=== PATIENT | male | born 1985 | race Caucasian/White ===

== ENCOUNTER 2017-06-26 09:07 | Emergency (ER) | payer SELFPAY ==
[~2017-06-26] VITALS: Ht 193 cm; Wt 152.0 kg
[~2017-06-26 09:07] MED LIST: AMOX-362 PO; AMOX875T60 PO; AZIT1PAC21 PO; CEPH500C24 PO; CLAR-1 PO; FLUTR; HYDR-4309 PO; IPRA4AER IH; LANS30CA63 PO; MET10 PO; METH4TAB57 PO; ONDA4TAB PO; ONDA4TAB97 PO; OXYC-865 PO; PERCOCET PO; PRED-1 PO; PROM-110 PO; SULF-198 PO; SUMA100T32 PO; TOP100 PO; [UNRECOGNIZED DRUG - REMARK]
--- NOTE | 2017-06-26 10:08 | RADIOLOGY IMAGING REPORT ---
FACILITY: [facility] - [place] PATIENT NAME: Júnior Castillo : 1985 MR: [id number] V: [id number] EXAM DATE: ORDERING PHYSICIAN: JULIUS ROBERTSON TECHNOLOGIST: Location: [facility] Patient: Júnior Castillo : 1985 Visit/Account:[id number] Date of Sevice: 06/26/2017 Exam type: CHEST PA AND LAT History: cough, shortness of breath, difficulty breathing Comparison: April 23 2017. Findings: The lungs are free of acute effusions, infiltrates or edema. There is no evidence of a pneumothorax or pneumomediastinum. Cardiac silhouette is normal in size. The trachea is in midline. IMPRESSION: 1. No acute cardiopulmonary process is seen Report Dictated By: Savanna Quevedo MD at 06/26/2017 10:04 AM Report E-Signed By: Savanna Quevedo MD at 06/26/2017 10:05 AM WSN:[email or web address]
--- NOTE | 2017-06-26 10:35 | ER Report ---
History and Physical Time Seen By MD: 10:24 Hx. of Stated Complaint: pt reports cough and sore throat for 2 days HPI/ROS CHIEF COMPLAINT: Sore throat HISTORY OF PRESENT ILLNESS: This is a 31-year-old male who presents to the emergency department for a sore throat. Patient states that about 2 days ago he developed a sore throat with some "changes in his voice", patient states that it has become very difficult to swallow and has been coughing up some phlegm from his throat. Denies shortness of breath or chest pain, nausea, vomiting, aches, chills, diarrhea. REVIEW OF SYSTEMS: Respiratory: No cough, no dyspnea. Cardiovascular: No chest pain, no palpitations. Gastrointestinal: No vomiting, no abdominal pain. Musculoskeletal: No back pain. ENT: As above. Allergies: Coded Allergies: cefaclor (Verified Allergy, Intermediate, RASH, 06/26/17) clonidine (Verified Allergy, Intermediate, HYPOTENSION, 06/26/17) Home Meds Active Scripts Amoxicillin (AMOXICILLIN) 500 Mg Capsule, 1 CAP PO Q12H for 10 Days, #20 CAPSULE 0 Refills Prov:RENUKA BENITES [employer]- 06/26/17 Discontinued Scripts Amoxicillin (AMOXICILLIN) 875 Mg Tablet, 1 TAB PO Q12H for infection, #14 TAB Prov:PADMINI MOLINA DO 04/23/17 Prednisone 10 Mg Tab (PREDNISONE 10 MG TAB) 10 Mg Tablet, 10 MG PO QDAY Y for reduce lung inflammation, #9 2 tabs daily for 3 days 1 tab daily for 3 days Prov:PADMINI MOLINA DO 04/23/17 Promethazine Hcl (PROMETHAZINE HCL) 25 Mg Tablet, 25 MG PO Q4H Y for dry of cough or suppress nause, #14 TAB Prov:PADMINI MOLINA DO 04/23/17 Oxycodone Hcl/Acetaminophen (PERCOCET 5-325 MG TABLET) 1 Each Tablet, 1 EACH PO Q4H Y for pain or cough suppression, #12 TAB Prov:PADMINI MOLINA DO 04/23/17 Past Medical/Surgical History Patient has no significant past medical or surgical history. Reviewed Nurses Notes: Yes Hx Smoking: Yes Smoking Status: Current: Every Day Smoker Exposure to Second Hand Smoke?: No Hx Substance Use Disorder: No Hx Alcohol Use: Yes Constitutional Vital Sign - Last 24 Hours 06/26/17 06/26/17 09:10 10:38 Temp 98.5 Pulse 82 82 Resp 16 B/P (MAP) 127/91 134/81 (98) Pulse Ox 93 97 O2 Delivery Room Air Room Air Physical Exam General Appearance: The patient is alert, has no immediate need for airway protection and no current signs of toxicity. Eyes: Pupils equal and round no injection. ENT: TMs intact, pearly joseph, landmarks noted, no injection, laterally. No nasal discharge, mild erythema to the inferior turbinates. Soft palate and posterior oropharynx erythematous with 3+ tonsillar hypertrophy. Scattered exudate. Respiratory: Chest is non tender, lungs are clear to auscultation. Cardiac: regular rate and rhythm. Gastrointestinal: Abdomen is soft and non tender, no masses, bowel sounds normal. Musculoskeletal: Neck: Neck is supple and non tender, anterior cervical chain lymphadenopathy. Extremities have full range of motion and are non tender. Skin: No rashes or lesions. DIFFERENTIAL DIAGNOSIS: After history and physical exam differential diagnosis was considered for but not limited to strep throat, viral syndrome, influenza and mono. Medical Decision Making Data Points Laboratory Hematology Test 06/26/17 09:22 Influenza Virus Type A (PCR) Negative (NEGATIVE) Influenza Virus Type B (PCR) Negative (NEGATIVE) Group A Streptococcus Screen Positive (NEGATIVE) Chemistry Test 06/26/17 09:22 Influenza Virus Type A (PCR) Negative (NEGATIVE) Influenza Virus Type B (PCR) Negative (NEGATIVE) Group A Streptococcus Screen Positive (NEGATIVE) EKG/Imaging Imaging Location: [facility] [place] Patient: Júnior Castillo : 1985 Visit/Account:[id number] Date of Sevice: 06/26/2017 Exam type: CHEST PA AND LAT History: cough, shortness of breath, difficulty breathing Comparison: April 23 2017. Findings: The lungs are free of acute effusions, infiltrates or edema. There is no evidence of a pneumothorax or pneumomediastinum. Cardiac silhouette is normal in size. The trachea is in midline. IMPRESSION: 1. No acute cardiopulmonary process is seen Report Dictated By: Savanna Quevedo MD at 06/26/2017 10:04 AM Report E-Signed By: Savanna Quevedo MD at 06/26/2017 10:05 AM WSN:[email or web address] ED Course/Re-evaluation ED Course The patient was admitted. A history of physical were obtained. Differential diagnoses were considered. A two-view chest x-ray was negative for any acute cardio pulmonary process. A strep throat was positive. Reviewed these results with the patient. A prescription for amoxicillin was sent to the patient's pharmacy. Also given the patient's painful sore throat I did send him home with a prescription for Magic mouthwash. Patient was also instructed to take ibuprofen or Tylenol for his aches and pains and discomfort. Patient was encouraged to follow up with primary care provider if no improvement. Patient was also instructed to return to emergency department for any other concerns or worsening symptoms. Patient had no other questions or concerns and was discharged home. Patient was okay with this plan of care. Decision to Disposition Date: Jun 26, 2017 Decision to Disposition Time: 10:35 Depart Departure Latest Vital Signs Vital Signs Date Time Temp Pulse Resp B/P (MAP) Pulse Ox O2 Delivery O2 Flow Rate FiO2 06/26/17 10:38 82 134/81 (98) 97 Room Air 06/26/17 09:10 98.5 16 Impression: Primary Impression: Strep pharyngitis Condition: Improved Disposition: HOME OR SELF-CARE New Scripts Amoxicillin (AMOXICILLIN) 500 Mg Capsule 1 CAP PO Q12H for 10 Days, #20 CAPSULE 0 Refills Prov: RENUKA BENITES 06/26/17 Patient Instructions: Strep Throat (ED) Additional Instructions: Drink plenty of water. Get plenty of rest. Take the antibiotics as prescribed. Take ibuprofen or Tylenol for aches and chills and sore throat. Try the magic mouthwash for the sore throat. Be sure to gargle with salt water. Follow-up with her primary care provider in one week if no improvement. They return to the emergency department for any other concerns or worsening symptoms. RENUKA BENITES-YOLANDA Jun 26, 2017 10:35
[2017-06-26 10:38] VITALS: BP 134/81
[2017-06-26] MEDS ORDERED: AMOX-362 PO (10:42)
== END 2017-06-26 10:54 | disposition home or self-care (01) ==
LOC: ER 09:08
DX: J02.0 Streptococcal pharyngitis (principal)
CPT/HCPCS: 71046; 87081; 87502; 87880; 99283

== ENCOUNTER → 2017-09-26 | Outpatient (CLI) | payer MEDICAID ==
--- NOTE | 2017-09-26 15:23 | RADIOLOGY IMAGING REPORT ---
FACILITY: [facility] PATIENT NAME: Júnior Castillo : 1985 MR: [id number] V: [id number] EXAM DATE: ORDERING PHYSICIAN: JOCELIN STARK TECHNOLOGIST: Location: [facility] [place] Patient: Júnior Castillo : 1985 Visit/Account:[id number] Date of Sevice: 09/26/2017 Technique: SHOULDER MIN 2 VIEWS RIGHT HISTORY: Right shoulder pain Comparison studies: Right shoulder radiographs December 21, 2016 FINDINGS: There is no acute fracture. The alignment of the right shoulder is maintained. Soft tissues are unremarkable. IMPRESSION: 1. No acute osseous process. Report Dictated By: Bc Hill DO at 09/26/2017 3:18 PM Report E-Signed By: Bc Hill DO at 09/26/2017 3:19 PM WSN:[id number]
== END ==
LOC: RAD 14:23
PROVIDERS: ATTEND Family Medicine
DX: M25.511 Pain in right shoulder (principal)

== ENCOUNTER 2017-12-16 15:23 | Emergency (ER) | payer MEDICAID ==
[2017-12-16 15:27] VITALS: BP 136/106
--- NOTE | 2017-12-16 15:32 | ER Report ---
History and Physical Time Seen By MD: 15:31 HPI/ROS CHIEF COMPLAINT: Sunburn HISTORY OF PRESENT ILLNESS: 32-year-old male patient presents to emergency room with complaint of a sunburn. Patient states that he's had this since Sunday. He states on Sunday he went to [employer], was working out there. States after he worked out that he wanted to fully use his membership. He states he went to the tanning bed. There he was given the option to go up to 9 minutes. He did choose the product safety head. After that his chest and upper legs came very red. He states that he was burning for the first couple of days. He states his skin is warm to the touch. He states they did try aloe vera, apple side of vinegar, baking soda baths all with no improvement in his discomfort. He states that prior to coming he was in tears he is having so much pain. He denies having any fevers or chills. Allergies: Coded Allergies: cefaclor (Verified Allergy, Intermediate, RASH, 06/26/17) clonidine (Verified Allergy, Intermediate, HYPOTENSION, 06/26/17) Home Meds Active Scripts Hydroxyzine Hcl (HYDROXYZINE HCL) 25 Mg Tablet, 25 MG PO QID Y for ITCHING, #30 TAB Prov:JOES DAVIS [facility] 12/16/17 Indomethacin (INDOMETHACIN) 25 Mg Capsule, 25 MG PO TID Y for PAIN, #30 CAPSULE Prov:JOSE DAVIS [facility] 12/16/17 Discontinued Scripts Amoxicillin (AMOXICILLIN) 500 Mg Capsule, 1 CAP PO Q12H for 10 Days, #20 CAPSULE 0 Refills Prov:RENUKA BENITES [facility]- 06/26/17 Past Medical/Surgical History Patient has a past medical history of alcohol use. Patient has a surgical history of left knee surgery. Reviewed Nurses Notes: Yes Hx Smoking: Yes Smoking Status: Current: Every Day Smoker Exposure to Second Hand Smoke?: No Hx Substance Use Disorder: No Hx Alcohol Use: Yes Constitutional Vital Sign - Last 24 Hours 12/16/17 15:27 Temp 98.5 Pulse 94 Resp 18 B/P (MAP) 136/106 Pulse Ox 92 O2 Delivery Room Air Physical Exam General appearance: Alert no distress. Respiratory: Chest is non tender, lungs are clear to auscultation. Cardiac: Regular rate and rhythm. Skin: Patient does have burn skin to his chest and back, back of his knees and upper thighs. There are no blisters noted. DIFFERENTIAL DIAGNOSIS: After history and physical exam differential diagnosis was considered for sunburn. Medical Decision Making ED Course/Re-evaluation ED Course Patient was admitted to exam room, history and physical were obtained. Differential diagnoses were considered. On examination patient does have a sunburn to the chest and back, as well as back of the knees and upper thighs. We will go ahead and have the patient continue with Alvera to help keep the skin moist. He is to use indomethacin up to 3 times a day as needed for pain as well as hydroxyzine to help with the itching. He is to return to the emergency room if condition worsens. He is follow-up with his primary care provider in 1- 2 weeks. Patient and mother verbalized understanding and agreement with plan. Decision to Disposition Date: Dec 16, 2017 Decision to Disposition Time: 15:43 Depart Departure Latest Vital Signs Vital Signs Date Time Temp Pulse Resp B/P (MAP) Pulse Ox O2 Delivery O2 Flow Rate FiO2 12/16/17 15:27 98.5 94 18 136/106 92 Room Air Impression: Primary Impression: Sunburn due to tanning bed Condition: Improved Disposition: HOME OR SELF-CARE New Scripts Hydroxyzine Hcl (HYDROXYZINE HCL) 25 Mg Tablet 25 MG PO QID Y for ITCHING, #30 TAB Prov: JOSE DAVIS 12/16/17 Indomethacin (INDOMETHACIN) 25 Mg Capsule 25 MG PO TID Y for PAIN, #30 CAPSULE Prov: JOSE DAVIS 12/16/17 Patient Instructions: Sunburn (ED) Additional Instructions: Apply aloe vera to the skin to help keep it moist. Limit time in a tanning bed to less than 3 minutes. Follow up with your primary care provider in the next 1-2 weeks. Return to the ER if condition worsens. Use sunscreen when out in the sun. JOSE DAVIS Dec 16, 2017 15:31
[2017-12-16] MEDS ORDERED: HYDR-4225 PO (15:41)
[2017-12-16] MEDS ORDERED: INDO-21 PO (15:41)
[2017-12-16] MEDS ORDERED: hydrOXYzine 25 MG TAB PO ONE (15:45)
[2017-12-16] MEDS ORDERED: INDOMETHACIN 25 MG CAP PO ONE (15:45)
[2017-12-16] MEDS ORDERED: ANAPHYLAXIS KIT 1 EA ONE (15:46)
== END 2017-12-16 15:55 | disposition home or self-care (01) ==
LOC: ER 15:38
DX: L55.9 Sunburn, unspecified (principal)
CPT/HCPCS: 99283

== ENCOUNTER 2018-02-16 12:42 | Emergency (ER) | payer MEDICAID ==
[~2018-02-16 12:42] MED LIST changes: +HYDR-4225 PO; -HYDR-4309 PO; +HYDR-653 PO; +INDO-21 PO
[2018-02-16 12:50] VITALS: BP 143/99
[2018-02-16] MEDS ORDERED: RANI-366 PO (12:50)
--- NOTE | 2018-02-16 14:39 | ER Report ---
History and Physical Time Seen By MD: 14:37 Hx. of Stated Complaint: SEVERAL WEEKS OF NUMBNESS IN ARMS AND HANDS. NUMBNESS NOT RESOLVING TODAY. HPI/ROS CHIEF COMPLAINT: Numbness and tingling down both arms HISTORY OF PRESENT ILLNESS: This is a 32-year-old male presents to emergency department for numbness and tingling down both arms. Patient states over the last several weeks he's had increased numbness and tingling down both arms, he's also had some cervical pain. 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 Patient does state that when he lifts heavy objects he does develop some numbness and tingling down both arms which does seem to resolve rather quickly after sitting the object down. CMS intact. No recent cervical injuries, although he does state that this last week he was using a sledgehammer and had a sharp shooting pain down his left neck into his left chest with increased numbness and tingling to the left arm. No fevers or chills. No nausea or vomiting. No chest pain or shortness of breath. REVIEW OF SYSTEMS: Respiratory: No cough, no dyspnea. Cardiovascular: No chest pain, no palpitations. Gastrointestinal: No vomiting, no abdominal pain. Musculoskeletal: As above. Allergies: Coded Allergies: cefaclor (Verified Allergy, Intermediate, RASH, 02/16/18) clonidine (Verified Allergy, Intermediate, HYPOTENSION, 02/16/18) Home Meds Active Scripts Prednisone (PREDNISONE) 20 Mg Tablet, 20 MG PO BID, #10 TAB Prov:RENUKA BENITES [facility]- 02/16/18 Reported Medications Ranitidine Hcl (ZANTAC) 150 Mg Tablet, 150 MG PO DAILY, TAB 02/16/18 Discontinued Scripts Hydroxyzine Hcl (HYDROXYZINE HCL) 25 Mg Tablet, 25 MG PO QID PRN for ITCHING, #30 TAB Prov:JOSE DAVIS [facility] 12/16/17 Indomethacin (INDOMETHACIN) 25 Mg Capsule, 25 MG PO TID PRN for PAIN, #30 C APSULE Prov:JOSE DAVIS [facility] 12/16/17 Past Medical/Surgical History The patient has a past medical and surgical history of GERD. Reviewed Nurses Notes: Yes Hx Smoking: Yes Smoking Status: Current: Every Day Smoker Exposure to Second Hand Smoke?: No Hx Substance Use Disorder: No Hx Alcohol Use: Yes Constitutional Vital Sign - Last 24 Hours 02/16/18 12:50 Temp 98.0 Pulse 72 Resp 14 B/P (MAP) 143/99 Pulse Ox 96 O2 Delivery Room Air Physical Exam General Appearance: The patient is alert, has no immediate need for airway protection and no current signs of toxicity. Eyes: Pupils equal and round no injection. Respiratory: Chest is non tender, lungs are clear to auscultation. Cardiac: regular rate and rhythm. Gastrointestinal: Abdomen is soft and non tender, no masses, bowel sounds normal. Musculoskeletal: Neck: Neck is supple and non tender. Extremities have full range of motion and are non tender. Slight decrease in sensation to the left tricep and pinky and ring finger. Equal strength. Skin: No rashes or lesions. DIFFERENTIAL DIAGNOSIS: After history and physical exam differential diagnosis was considered for cervical strain, cervical radiculopathy, repetitive motion injury. Medical Decision Making EKG/Imaging Imaging Location: [facility] Patient: Júnior Castillo : 1985 Visit/Account:[id number] Date of Sevice: 02/16/2018 Technique: CERVICAL SPINE MIN 4 VIEW HISTORY: Neck pain Comparison studies: None FINDINGS: There is no acute fracture. The vertebral body heights, alignment and intervertebral disc spaces are maintained. The neural foramen are unremarkable. Soft tissues are normal. IMPRESSION: 1. No acute osseous process. Report Dictated By: Bc Hill DO at 02/16/2018 3:22 PM Report E-Signed By: Bc Hill DO at 02/16/2018 3:24 PM WSN:[id number] ED Course/Re-evaluation ED Course The patient was noted to room. History and physical were obtained. Differential diagnoses were considered. An x-ray of the cervical spine was obtained, no acute abnormalities identified. I feel that this is a repetitive motion type of injury, with cervical radiculopathy. I did recommend that the patient follow up with [facility] specifically Dr. Jacobs or Dr. Urena for further evaluation of his cervical concerns. I also recommended physical therapy. Patient was sent home with a prescription for prednisone as well as physical therapy. Patient was also instructed to follow-up with his primary care provider is needed. Return to the ER for any concerns or worsening symptoms. Patient expressed understanding and was discharged home. At the time of discharge the patient's numbness and tingling has resolved. Decision to Disposition Date: Feb 16, 2018 Decision to Disposition Time: 16:16 Depart Departure Latest Vital Signs Vital Signs Date Time Temp Pulse Resp B/P (MAP) Pulse Ox O2 Delivery O2 Flow Rate FiO2 02/16/18 12:50 98.0 72 14 143/99 96 Room Air Impression: Primary Impression: Cervical radiculopathy Condition: Improved Disposition: HOME OR SELF-CARE Referrals: JEREMÍAS JACOBS MD, MICHAEL C MD New Scripts Prednisone (PREDNISONE) 20 Mg Tablet 20 MG PO BID, #10 TAB Prov: RENUKA BENITES 02/16/18 Patient Instructions: Cervical Radiculopathy (ED) Additional Instructions: Take the prednisone as prescribed. Take Tylenol as needed for the pain. I do recommend following up with either Dr. Jacobs or Dr. [facility] for reevaluation of the cervical spine and cervical radiculopathy. Drink plenty of water. Get plenty of rest. You can take the physical therapy prescription to any physical therapist in town. Return to the emergency department for any other concerns or worsening symptoms. RENUKA BENITES-BC Feb 16, 2018 14:39
[2018-02-16] MEDS ORDERED: PRED20TA6 PO (14:55)
--- NOTE | 2018-02-16 15:27 | RADIOLOGY IMAGING REPORT ---
FACILITY: [facility] [place] PATIENT NAME: Júnior Castillo : 1985 MR: [id number] V: [id number] EXAM DATE: ORDERING PHYSICIAN: RENUKA BENITES TECHNOLOGIST: Location: [facility] [place] Patient: Júnior Castillo : 1985 Visit/Account:[id number] Date of Sevice: 02/16/2018 Technique: CERVICAL SPINE MIN 4 VIEW HISTORY: Neck pain Comparison studies: None FINDINGS: There is no acute fracture. The vertebral body heights, alignment and intervertebral disc s paces are maintained. The neural foramen are unremarkable. Soft tissues are normal. IMPRESSION: 1. No acute osseous process. Report Dictated By: Bc Hill DO at 02/16/2018 3:22 PM Report E-Signed By: Bc Hill DO at 02/16/2018 3:24 PM WSN:[id number]
== END 2018-02-16 19:05 | disposition home or self-care (01) ==
LOC: ER 14:53
DX: M54.12 Radiculopathy, cervical region (principal)
CPT/HCPCS: 72050; 99283

== ENCOUNTER 2018-09-09 20:57 | Emergency (ER) | payer SELFPAY ==
[~2018-09-09 20:57] MED LIST changes: +PRED20TA6 PO; +RANI-366 PO
--- NOTE | 2018-09-09 22:11 | ER Report ---
History and Physical Time Seen By MD: 22:11 Hx. of Stated Complaint: PT REPORTS SHARP PAIN IN LOWER BACK THAT STARTED 2 HOURS AGO. HPI/ROS CHIEF COMPLAINT: back pain HISTORY OF PRESENT ILLNESS: This is a 32 year old male. He awoke tonight with sudden onset of left sided back pain. Sharp. Worsens with movement. Improves with laying on his left side. No known injury, but may have twisted wrong and not realized it. Has no fevers or chills. No nausea or vomiting. Normal bowel movements. Normal urination, perhaps a little darker. No dysuria. Denies abdominal pain. No blood in urine or stool. No shortness of breath. No chest pain. Allergies: Coded Allergies: cefaclor (Verified Allergy, Intermediate, RASH, 09/09/18) clonidine (Verified Allergy, Intermediate, HYPOTENSION, 09/09/18) Home Meds Active Scripts Ketorolac Tromethamine (KETOROLAC TROMETHAMINE) 10 Mg Tab, 10 MG PO Q6H PRN for PAIN, #12 TAB 0 Refills Prov:UJLIUS ROBERTSON MD 09/10/18 Cyclobenzaprine Hcl (CYCLOBENZAPRINE HCL) 10 Mg Tablet, 10 MG PO Q8H PRN for MUSCLE SPASMS, #20 TAB 0 Refills Prov:JULIUS ROBERTSON MD 09/10/18 Discontinued Reported Medications Ranitidine Hcl (ZANTAC) 150 Mg Tablet, 150 MG PO DAILY, TAB 02/16/18 Discontinued Scripts Prednisone (PREDNISONE) 20 Mg Tablet, 20 MG PO BID, #10 TAB Prov:RENUKA BENITES [employer]- 02/16/18 Reviewed Nurses Notes: Yes Hx Smoking: Yes Smoking Status: Current: Every Day Smoker Exposure to Second Hand Smoke?: No Hx Substance Use Disorder: No Hx Alcohol Use: Yes Constitutional Vital Sign - Last 24 Hours 09/09/18 09/09/18 09/09/18 09/09/18 21:31 21:32 21:42 21:57 Temp 97.7 Pulse 76 70 77 Resp 20 B/P (MAP) 124/68 124/68 (86) Pulse Ox 95 93 93 O2 Delivery Room Air 09/09/18 09/09/18 09/09/18 09/09/18 22:00 22:12 22:27 22:30 Pulse 75 B/P (MAP) 117/60 (79) 123/60 (81) Pulse Ox 95 94 09/09/18 09/09/18 09/09/18 09/09/18 22:42 22:47 23:01 23:02 Pulse 68 72 77 B/P (MAP) 128/52 (77) Pulse Ox 95 96 97 09/09/18 09/09/18 09/09/18 09/09/18 23:17 23:30 23:32 23:37 Pulse 73 72 73 B/P (MAP) 116/69 (85) Pulse Ox 97 95 93 09/09/18 09/10/18 09/10/18 09/10/18 23:52 00:00 00:07 00:30 Pulse 66 74 B/P (MAP) 112/84 (93) 116/62 (80) Pulse Ox 94 95 Intake and Output 09/09/18 09/09/18 09/10/18 15:00 23:00 07:00 Intake Total 1000 ml Balance 1000 ml Physical Exam General Appearance: The patient is alert. No acute distress. Eyes: Pupils are equal, round. Reactive to light. No pallor, injection or icterus. ENT: Mucous membranes are moist. Normal oral mucosa. Posterior oropharynx is normal. Respiratory: Lungs are clear to auscultation. Cardiovascular: Regular rate and rhythm. No murmurs, gallops or rubs. Normal capillary refill. Gastrointestinal: Abdomen is soft, some pain in left lower back and into abdomen. Nondistended. No rebound or guarding. Normal active bowel sounds. No costovertebral angle tenderness with percussion. Neurological: Alert and oriented x3. No focal neurologic deficits Skin: Warm and dry. Musculoskeletal: No tenderness in palpation of the cervical, thoracic and lumbar spine. Some pain in the paraspinous area left lumbar. DIFFERENTIAL DIAGNOSIS: After history and physical exam, differential diagnosis was considered for patient with the abdomen and back pain sudden onset, looking for intra-abdominal processes such as colitis, urinary infection, kidney stone versus musculoskeletal causes. Medical Decision Making Data Points Result Diagram: 09/09/18222909/09/182229 Laboratory Hematology Test 09/09/18 22:25 09/09/18 22:30 Urine Color Chasity Urine Clarity Slightly-cloudy Urine pH 5.0 pH (4.8-9.5) Urine Specific Dixon 1.043 Urine Protein Negative mg/dL (NEGATIVE) Urine Glucose (UA) Negative mg/dL (NEGATIVE) Urine Ketones Trace mg/dL (NEGATIVE) Urine Blood Negative (NEGATIVE) Urine Nitrite Negative (NEGATIVE) Urine Bilirubin Small (NEGATIVE) Urine Urobilinogen 4.0 mg/dL (0.2-1.9) Urine Leukocyte Esterase Negative (NEGATIVE) Urine RBC 1 /HPF (0-2/HPF) Urine WBC 3 /HPF (0-5/HPF) Urine Squamous Epithelial Cells Few /LPF (</=FEW) Urine Bacteria Negative /HPF (NONE-FEW) Urine Mucus Few /HPF (NONE-FEW) Red Blood Count 6.12 M/uL (4.00-5.60) Mean Corpuscular Volume 84.5 fL (80.0-96.0) Mean Corpuscular Hemoglobin 29.1 pg (26.0-33.0) Mean Corpuscular Hemoglobin Concent 34.4 g/dL (32.0-36.0) Red Cell Distribution Width 13.9 % (11.5-14.5) Mean Platelet Volume 8.8 fL (7.2-11.1) Neutrophils (%) (Auto) 62.1 % (39.4-72.5) Lymphocytes (%) (Auto) 22.3 % (17.6-49.6) Monocytes (%) (Auto) 8.6 % (4.1-12.4) Eosinophils (%) (Auto) 3.6 % (0.4-6.7) Basophils (%) (Auto) 3.4 % (0.3-1.4) Nucleated RBC Relative Count (auto) 0.1 /100WBC Neutrophils # (Auto) 6.1 K/uL (2.0-7.4) Lymphocytes # (Auto) 2.2 K/uL (1.3-3.6) Monocytes # (Auto) 0.8 K/uL (0.3-1.0) Eosinophils # (Auto) 0.4 K/uL (0.0-0.5) Basophils # (Auto) 0.3 K/uL (0.0-0.1) Nucleated RBC Absolute Count (auto) 0.01 K/uL Peripheral Blood Smear Yes Y/N Sodium Level 138 mmol/L (137-145) Potassium Level 4.1 mmol/L (3.5-5.0) Chloride Level 107 mmol/L (98-107) Carbon Dioxide Level 26 mmol/L (22-30) Blood Urea Nitrogen 18 mg/dl (9-21) Creatinine 0.80 mg/dl (0.66-1.25) Glomerular Filtration Rate Calc > 60.0 Random Glucose 89 mg/dl (75-110) Calcium Level 9.2 mg/dl (8.4-10.2) Total Bilirubin 0.7 mg/dl (0.2-1.3) Aspartate Amino Transf (AST/SGOT) 35 U/L (0-35) Alanine Aminotransferase (ALT/SGPT) 65 U/L (0-56) Alkaline Phosphatase 63 U/L (0-126) Total Protein 7.6 g/dl (6.3-8.2) Albumin 4.3 g/dl (3.5-5.0) Chemistry Test 09/09/18 22:25 09/09/18 22:30 Urine Color Chasity Urine Clarity Slightly-cloudy Urine pH 5.0 pH (4.8-9.5) Urine Specific Dixon 1.043 Urine Protein Negative mg/dL (NEGATIVE) Urine Glucose (UA) Negative mg/dL (NEGATIVE) Urine Ketones Trace mg/dL (NEGATIVE) Urine Blood Negative (NEGATIVE) Urine Nitrite Negative (NEGATIVE) Urine Bilirubin Small (NEGATIVE) Urine Urobilinogen 4.0 mg/dL (0.2-1.9) Urine Leukocyte Esterase Negative (NEGATIVE) Urine RBC 1 /HPF (0-2/HPF) Urine WBC 3 /HPF (0-5/HPF) Urine Squamous Epithelial Cells Few /LPF (</=FEW) Urine Bacteria Negative /HPF (NONE-FEW) Urine Mucus Few /HPF (NONE-FEW) White Blood Count 9.9 k/uL (4.5-11.0) Red Blood Count 6.12 M/uL (4.00-5.60) Hemoglobin 17.8 g/dL (14.0-18.0) Hematocrit 51.8 % (42.0-52.0) Mean Corpuscular Volume 84.5 fL (80.0-96.0) Mean Corpuscular Hemoglobin 29.1 pg (26.0-33.0) Mean Corpuscular Hemoglobin Concent 34.4 g/dL (32.0-36.0) Red Cell Distribution Width 13.9 % (11.5-14.5) Platelet Count 314 K/uL (150-450) Mean Platelet Volume 8.8 fL (7.2-11.1) Neutrophils (%) (Auto) 62.1 % (39.4-72.5) Lymphocytes (%) (Auto) 22.3 % (17.6-49.6) Monocytes (%) (Auto) 8.6 % (4.1-12.4) Eosinophils (%) (Auto) 3.6 % (0.4-6.7) Basophils (%) (Auto) 3.4 % (0.3-1.4) Nucleated RBC Relative Count (auto) 0.1 /100WBC Neutrophils # (Auto) 6.1 K/uL (2.0-7.4) Lymphocytes # (Auto) 2.2 K/uL (1.3-3.6) Monocytes # (Auto) 0.8 K/uL (0.3-1.0) Eosinophils # (Auto) 0.4 K/uL (0.0-0.5) Basophils # (Auto) 0.3 K/uL (0.0-0.1) Nucleated RBC Absolute Count (auto) 0.01 K/uL Peripheral Blood Smear Yes Y/N Glomerular Filtration Rate Calc > 60.0 Calcium Level 9.2 mg/dl (8.4-10.2) Total Bilirubin 0.7 mg/dl (0.2-1.3) Aspartate Amino Transf (AST/SGOT) 35 U/L (0-35) Alanine Aminotransferase (ALT/SGPT) 65 U/L (0-56) Alkaline Phosphatase 63 U/L (0-126) Total Protein 7.6 g/dl (6.3-8.2) Albumin 4.3 g/dl (3.5-5.0) Urinalysis Test 09/09/18 22:25 Urine Color Chasity Urine Clarity Slightly-cloudy Urine pH 5.0 pH (4.8-9.5) Urine Specific Dixon 1.043 Urine Protein Negative mg/dL (NEGATIVE) Urine Glucose (UA) Negative mg/dL (NEGATIVE) Urine Ketones Trace mg/dL (NEGATIVE) Urine Blood Negative (NEGATIVE) Urine Nitrite Negative (NEGATIVE) Urine Bilirubin Small (NEGATIVE) Urine Urobilinogen 4.0 mg/dL (0.2-1.9) Urine Leukocyte Esterase Negative (NEGATIVE) Urine RBC 1 /HPF (0-2/HPF) Urine WBC 3 /HPF (0-5/HPF) Urine Squamous Epithelial Cells Few /LPF (</=FEW) Urine Bacteria Negative /HPF (NONE-FEW) Urine Mucus Few /HPF (NONE-FEW) EKG/Imaging Imaging EXAMINATION: CT Abdomen and Pelvis With Contrast 09/09/2018 10:17 PM HISTORY: left back and abdominal pain TECHNIQUE: Spiral scan was through the abdomen and pelvis during injection of nonionic iodinated intravenous contrast. Contrast: 75 mL of IV Isovue 370. One of the following dose optimization techniques was utilized in the performance of this exam: Automated exposure control; adjustment of the mA and/or kV according to the patient's size; or use of an iterative reconstruction technique. Specific details can be referenced in the facility's radiology CT exam operational policy. COMPARISON STUDIES: Acute abdominal series 05/01/2013. CT abdomen and pelvis 09/01/2008. FINDINGS: Liver / biliary: negative Pancreas: Negative. No peripancreatic inflammation. Spleen: Negative. Normal size. Adrenal glands: negative Kidneys / retroperitoneum: Normal and symmetric enhancement. No stone or obstruction. Pelvic structures: negative Bowel / peritoneum / mesenteries: Fluid and food material in the stomach which is somewhat distended. No etiology for any gastric outlet obstruction evident by CT. Duodenum and remainder of small bowel are unremarkable. Colon wall is not thickened. No significant diverticular changes. Normal appendix. No ascites or free air. Vessels: negative Musculoskeletal / Body wall: No retroperitoneal hematoma. Mild degenerative changes in the spine. Lymph node assessment: negative Lower chest: negative IMPRESSION: 1. The stomach is filled with fluid and food material without any etiology for gastric outlet obstruction demonstrated by this study. Bowel evaluation by CT is otherwise negative. 2. No significant acute finding otherwise. Report Dictated By: Juan C Jenkins MD at 09/09/2018 11:19 PM ED Course/Re-evaluation Clinical Indication for ER IV: Hydration, IV Access ED Course Laboratory evaluation negative. CT scan does not show causes well. This is likely musculoskeletal. He did have some improvement with Toradol but not complete. We'll also send him home with some muscle relaxer and a couple of Lortab for tonight. Prescriptions for Toradol and Flexeril to be filled tomorrow. Urine was little concentrated and we will get a urine culture on this. Recommended increase fluid intake. Decision to Disposition Date: September 10, 2018 Decision to Disposition Time: 00:23 Depart Departure Latest Vital Signs Vital Signs Date Time Temp Pulse Resp B/P (MAP) Pulse Ox O2 Delivery O2 Flow Rate FiO2 09/10/18 00:30 116/62 (80) 09/10/18 00:07 74 95 09/09/18 21:31 97.7 20 Room Air Impression: Primary Impression: Low back strain Condition: Improved Disposition: HOME OR SELF-CARE New Scripts Ketorolac Tromethamine (KETOROLAC TROMETHAMINE) 10 Mg Tab 10 MG PO Q6H PRN for PAIN, #12 TAB 0 Refills Prov: JULIUS ROBERTSON MD 09/10/18 Cyclobenzaprine Hcl (CYCLOBENZAPRINE HCL) 10 Mg Tablet 10 MG PO Q8H PRN for MUSCLE SPASMS, #20 TAB 0 Refills Prov: JULIUS ROBERTSON MD 09/10/18 Patient Instructions: Acute Low Back Pain (ED), Low Back Strain (ED) Additional Instructions: We suspect that you have musculoskeletal pain, likely a back strain. You can use a heating pad or ice pack to help with pain. Take Toradol 10mg, one every 6 hours for pain. Take Flexeril 10mg, one every 8 hours as needed for spasm or pain. Take Lortab 5/325, one every 6 hours tonight to help with pain. Follow-up with primary care. Problem Qualifiers Primary Impression: Low back strain Encounter type: initial encounter Qualified Codes: S39.012A - Strain of muscle, fascia and tendon of lower back, initial encounter JULIUS ROBERTSON MD September 09, 2018 22:11
[2018-09-09] MEDS ORDERED: KETOROLAC 30 MG/ML VIAL IVP ONE (22:20)
[2018-09-09] MEDS ORDERED: NS(*) 0.9% 1000 ML BAG 1,000 ML IV ONE (22:20)
[2018-09-09 22:47] LABS: PLATELET COUNT, AUTOMATED 314 K/uL (150-450)
[2018-09-09] MEDS ORDERED: IOPAMIDOL 76% 100 ML INFUS BTL 100 ML ONE (22:56)
--- NOTE | 2018-09-09 23:30 | RADIOLOGY IMAGING REPORT ---
FACILITY: [facility] PATIENT NAME: Júnior Castillo : 1985 MR: [id number] V: [id number] EXAM DATE: ORDERING PHYSICIAN: JULIUS ROBERTSON TECHNOLOGIST: Location: [facility] Patient: Júnior Castillo : 1985 Visit/Account:[id number] Date of Sevice: 09/09/2018 EXAMINATION: CT Abdomen and Pelvis With Contrast 09/09/2018 10:17 PM HISTORY: left back and abdominal pain TECHNIQUE: Spiral scan was through the abdomen and pelvis during injection of nonionic iodinated in travenous contrast. Contrast: 75 mL of IV Isovue 370. One of the following dose optimization techniques was utilized in the performance of this exam: Autom ated exposure control; adjustment of the mA and/or kV according to the patient's size; or use of an i terative reconstruction technique. Specific details can be referenced in the facility's radiology C T exam operational policy. COMPARISON STUDIES: Acute abdominal series 05/01/2013. CT abdomen and pelvis 09/01/2008. FINDINGS: Liver / biliary: negative Pancreas: Negative. No peripancreatic inflammation. Spleen: Negative. Normal size. Adrenal glands: negative Kidneys / retroperitoneum: Normal and symmetric enhancement. No stone or obstruction. Pelvic structures: negative Bowel / peritoneum / mesenteries: Fluid and food material in the stomach which is somewhat distended. No etiology for any gastric outlet obstruction evident by CT. Duodenum and remainder of small bowel are unremarkable. Colon wall is not thickened. No significant diverticular changes. Normal appendix. No ascites or free air. Vessels: negative Musculoskeletal / Body wall: No retroperitoneal hematoma. Mild degenerative changes in the spine. Lymph node assessment: negative Lower chest: negative IMPRESSION: 1. The stomach is filled with fluid and food material without any etiology for gastric outlet obstruc tion demonstrated by this study. Bowel evaluation by CT is otherwise negative. 2. No significant acute finding otherwise. Report Dictated By: Juan C Jenkins MD at 09/09/2018 11:19 PM Report E-Signed By: Juan C Jenkins MD at 09/09/2018 11:25 PM WSN:[id number]
[2018-09-10] MEDS ORDERED: CYCLOBENZAPRINE HCL 10 MG TH PO ONE (00:20)
[2018-09-10] MEDS ORDERED: KETOROLAC TROM 10 MG TAB TH PO ONE (00:20)
[2018-09-10] MEDS ORDERED: ACET/HYDROC 5/325MG TH ER ONLY 2 TAB/BOTTLE PO ONE (00:20)
[2018-09-10] MEDS ORDERED: CYCL10TA29 PO (00:27)
[2018-09-10] MEDS ORDERED: KET10 PO (00:27)
[2018-09-10 00:30] VITALS: BP 116/62
== END 2018-09-10 00:43 | disposition home or self-care (01) ==
LOC: ER 21:48
DX: S39.012A Strain of muscle, fascia and tendon of lower back, initial encounter (principal); R39.198 Other difficulties with micturition
CPT/HCPCS: 74177; 81001; 85025; 87088; 96361; 96374; 99284; J1885; J7030; Q9967; 82040; 82247; 82310; 82374; 82435; 82565; 82947; 84075; 84132; 84155; 84295; 84450; 84460; 84520